=== PATIENT | female | born 1995 | race Caucasian/White ===

== ENCOUNTER 2018-05-06 03:42 | Outpatient (CLI) | payer BC ==
[2018-05-06 15:08] LABS: BHCG - Serum Negative (NEGATIVE); Pregs Control Background? CLEAR/WHITE (CLR/WHITE); Pregs Control Bar Appear? YES (CONTROL BAR)
== END 2018-05-06 03:43 | disposition home or self-care (01) ==
LOC: LABBT 03:42
PROVIDERS: ATTEND Student in an Organized Health Care Education/Training Program
DX: Z01.812 Encounter for preprocedural laboratory examination (principal)
CPT/HCPCS: 84703

== ENCOUNTER 2018-05-10 09:50 | Day surgery (SDC) | payer BC ==
[2018-05-06 13:09] VITALS: BMI 43.3
[2018-05-06 14:34] LABS: Hemoglobin 13.5 g/dL (12.0-16.0); Mean Corpuscular HGB CONC 33.3 g/dL (32.0-36.0); Mean Corpuscular Hemoglobin 27.8 pg (25.0-35.0); Mean Corpuscular Volume 83.5 fL (78.0-98.0); Mean Platelet Volume 9.1 fL (7.4-10.4); Platelet Count 303 thou/uL (130-400); RBC Distribution Width 13.4 % (11.5-14.5); Red Blood Cell (RBC) Count 4.85 mill/uL (4.00-5.20); White Blood Cell (WBC) Count 8.8 thou/uL (4.8-10.8)
[2018-05-10] MEDS ORDERED: Fentanyl 100 MCG/2 ML VIAL ONE ×2 (10:33→12:27)
[2018-05-10] MEDS ORDERED: Midazolam HCl 2 mg/2 ml Vial ONE (10:52)
[2018-05-10] MEDS ORDERED: Famotidine/PF 20 mg/2ml Vial ONE (10:52)
[2018-05-10] MEDS ORDERED: Ketorolac Tromethamine 30 MG/ML VIAL ONE (10:53)
[2018-05-10] MEDS ORDERED: Silver Nitrate Application 1 EACH ONE (11:50)
[2018-05-10] MEDS ORDERED: Lidocaine 1% PF 5 ML VIAL ONE (13:53)
[2018-05-10] MEDS ORDERED: Dexamethasone 20 MG/5 ML VIAL ONE (13:53)
[2018-05-10] MEDS ORDERED: diphenhydrAMINE 50 MG/ML VIAL ONE (13:53)
[2018-05-10] MEDS ORDERED: Glycopyrrolate 0.2 MG/ML 5 ML SYRINGE ONE (13:53)
[2018-05-10] MEDS ORDERED: Rocuronium Bromide 10 MG/ML (10ML VIAL) ONE (13:53)
[2018-05-10] MEDS ORDERED: Ondansetron PF 4 MG/2 ML Vial ONE (13:53)
[2018-05-10] MEDS ORDERED: PROPOFOL 200 MG/20 ML VIAL ONE (13:53)
--- NOTE | 2018-05-10 15:43 | OP ---
DATE OF PROCEDURE: 05/10/2018 PREOPERATIVE DIAGNOSES: 1. Pelvic pain. 2. Irregular bleeding. 3. Displaced intrauterine device. POSTOPERATIVE DIAGNOSIS: Embedded intrauterine device in the endocervix. PROCEDURE: Hysteroscopy with intrauterine device removal. ANESTHESIA: General endotracheal. [employer] SURGEON: Carmela Murray PA-C. PATHOLOGY: None. COMPLICATIONS: None. DRAINS: None. ESTIMATED BLOOD LOSS: 5 mL. IVF: 1 L of crystalloid. URINE OUTPUT: 200 mL of clear urine. FINDINGS: Cervix is normal-appearing. IUD strings are present. On tugging on the IUD strings, the IUD did not deliver easily. On hysteroscopic exam, the IUD was present in the cervix. One of the arms was embedded in the endocervical canal. The uterus was normal appearing. There were no uterine anomalies and the bilateral tubal ostia were visualized. Normal saline was used as distention media and the deficit was 70 mL. OPERATIVE TECHNIQUE: The patient was taken to the operating room, where general anesthesia was obtained without difficulty. The patient was prepped and draped in a sterile fashion in the dorsal lithotomy position. A red rubber catheter was used to drain the bladder and a speculum was placed in the vagina. The anterior lip of the cervix was grasped with single-tooth tenaculum. The cervix was dilated with Andrew dilators. Once the IUD did not deliver with gentle traction on the strings, the 5-mm hysteroscope was assembled and using normal saline as distention media, this was inserted into the cervix, and immediately the IUD was visible with one of the arms perforating the canal. The scope was then passed through the cervix then into the uterus, where the uterus was noted to be normal appearing with the secretory type endometrium. No masses inside. At that time, the hysteroscopic grasper was used to grasp one of the arms of the IUD, and under direct visualization, traction was placed on the arm and the IUD easily delivered through the cervix and this was discarded. Additional look in the cervix noted no defects in the cervix, no active bleeding. The uterus was also again noted to be within normal limits. All instruments were then removed from the patient. The tenaculum site was continuously oozing and this was hemostatic with silver nitrate. All instruments were removed out of the vagina. The patient tolerated procedure well. Sponge, lap, and needle counts were correct x2. The patient was taken to Recovery in stable condition. The patient received Ancef 2 g prior to the procedure. Job ID: [id number]
== END 2018-05-10 14:10 | disposition home or self-care (01) ==
LOC: SDC 09:50
PROVIDERS: ATTEND Student in an Organized Health Care Education/Training Program
PROC: 0UC98ZZ Extirpation of Matter from Uterus, Via Natural or Artificial Opening Endoscopic (ICD-10-PCS; principal; 2018-05-10)
DX: T83.32XA Displacement of intrauterine contraceptive device, initial encounter (principal); F41.9 Anxiety disorder, unspecified; F32.9 Major depressive disorder, single episode, unspecified; F17.290 Nicotine dependence, other tobacco product, uncomplicated; R73.03 Prediabetes; Z79.84 Long term (current) use of oral hypoglycemic drugs; Z79.899 Other long term (current) drug therapy
CPT/HCPCS: 85027; 86850; 86900; 86901; J0131; J1100; J1200; J1885; J2001; J2250; J2405; J2704; J3010; S0028

== ENCOUNTER 2018-07-19 12:44 | Emergency (ER) | payer BC ==
[2018-07-19 13:31] LABS: #Basophils 0.1 thou/uL (0.0-0.2); #Eosinphils 0.3 thou/uL (0.0-0.7); #Lymphocytes 3.2 thou/uL (1.20-3.40); #Monocytes 0.5 thou/uL (0.11-0.59); #Neutrophils 6.9 thou/uL (1.40-6.50); %Basophils 0.7 % (0.0-1.0); %Eosinophils 2.7 % (0.0-10.0); %Lymphocytes 29.2 % (28.0-48.0); %Monocytes 4.6 % (0.0-4.0); %Neutrophils 62.8 % (31.0-61.0); Hemoglobin 13.9 g/dL (12.0-16.0); Mean Corpuscular HGB CONC 34.6 g/dL (32.0-36.0); Mean Corpuscular Hemoglobin 29.2 pg (25.0-35.0); Mean Corpuscular Volume 84.5 fL (78.0-98.0); Mean Platelet Volume 8.7 fL (7.4-10.4); Platelet Count 308 thou/uL (130-400); RBC Distribution Width 13.2 % (11.5-14.5); Red Blood Cell (RBC) Count 4.74 mill/uL (4.00-5.20)
[2018-07-19 13:50] LABS: Bilirubin Negative (Negative); Blood, Urine Negative (Negative); Clarity CLEAR (Clear); Glucose, Urine (Dipstick) Negative (Negative); Leukocyte Negative (Negative); Nitrite Negative (Negative); Protein, Urine (Dipstick) Negative (Neg-Trace); Specific Gravity, Urine 1.021 (1.002-1.036); Urobilinogen 0.2 mg/dL (0.2-1.0)
[2018-07-19 14:01] LABS: ALT (SGPT) 20 U/L (8-55); AST (SGOT) 16 U/L (5-34); Albumin 4.3 g/dL (3.5-5.0); Alkaline Phosphatase 70 U/L (40-150); Anion Gap 14 mmol/L (10-20); BUN (Urea Nitrogen) 13 mg/dL (7.0-18.7); Bilirubin, Total 0.2 mg/dL (0.2-1.2); Calc. Creatinine Clearance 0 mL/min (70-130); Calcium 9.7 mg/dL (7.8-10.44); Carbon Dioxide 22 mmol/L (22-29); Chloride 105 mmol/L (98-107); Estimated GFR-MDRD Greater than 90; Globulin 3.9 g/dL (2.4-3.5); Glucose 77 mg/dL (70-105); Lipase 79 U/L (8-78); Potassium 4.2 mmol/L (3.5-5.1); Protein, Total 8.2 g/dL (6.0-8.3); Sodium 137 mmol/L (136-145)
[2018-07-19] MEDS ORDERED: Morphine 4 MG/ML VIAL ONE (14:26)
[2018-07-19] MEDS ORDERED: Ondansetron PF 4 MG/2 ML Vial ONE (14:26)
[2018-07-19 14:52] LABS: Pregnancy Test - Urine (BHCG) Negative (Negative); Pregu Control Background? CLEAR/WHITE (CLR/WHITE); Pregu Control Bar Appear? YES (CONTROL BAR); Specific Gravity 1.021 (1.002-1.036)
--- NOTE | 2018-07-19 15:33 | CT ---
ABDOMEN CT WITH CONTRAST PELVIC CT WITH CONTRAST: HISTORY: Stabbing pains in the vaginal canal and abdominal pain, onset 1 week ago. COMPARISON: None. FINDINGS: ABDOMEN CT: Lung bases are clear. Normal heart size. No significant pericardial effusion. Descending thoracic aorta and abdominal aorta have a normal caliber. No periaortic fat stranding. Portal vein is patent. Hypoattenuation of the liver due to hepatic steatosis. Spleen, pancreas, and adrenal glands have kimmie ropriate attenuation. There is calcification in the medial limb of the right adrenal gland likely du e to remote insult. No gastrohepatic, retrocrural, or periportal lymphadenopathy. Decreased distal fat limits evaluation for inflammatory change. No mesenteric mass, free air, or emmett e fluid. Symmetric enhancement of the kidneys. Bilaterally, no obstructive uropathy. Limited evaluation of the alimentary canal by lack of oral contrast. Gastric mucosa is grossly unrem arkable. Multiple normal-caliber small bowel loops. Ileocecal junction is normal. The distal aspec t of the appendix is prominent measuring approximately 1 cm. No significant associated periappendice al inflammatory change. However, there are a few upper normal as well as enlarged lymph nodes in the right lower quadrant mesentery. The largest lymph node measures 1.8 x 1.4 cm. The remainder of the colon is unremarkable. Scattered diverticulosis. No diverticulitis. CT PELVIS: Uterus and adnexal structures are unremarkable. Unremarkable urinary bladder. No pelvic mass, lymph adenopathy, free air, or free fluid. No lytic or blastic lesions within the osseous structures. IMPRESSION: 1. Upper normal caliber of the appendix. No evidence of associated inflammatory change. Findings a re nonspecific. Correlate clinically for appendicitis. 2. Scattered diverticulosis. No diverticulitis. 3. Hepatic steatosis. 4. Mildly enlarged right lower quadrant mesenteric lymph nodes which may be reactive or possibly due to focal mesenteric lymphadenitis. Correlate clinically. POS: OFF
== END 2018-07-19 15:46 | disposition home or self-care (01) ==
LOC: ERS 12:44
DX: I88.0 Nonspecific mesenteric lymphadenitis (principal); E11.9 Type 2 diabetes mellitus without complications; F41.9 Anxiety disorder, unspecified; F32.9 Major depressive disorder, single episode, unspecified; Z79.899 Other long term (current) drug therapy; Z79.84 Long term (current) use of oral hypoglycemic drugs
CPT/HCPCS: 36415; 74177; 80053; 81003; 81025; 83690; 85025; 87480; 87491; 87510; 87591; 87660; 96361; 96374; 96375; J2270; J2405

== ENCOUNTER 2018-08-08 08:37 | Outpatient (CLI) | payer BC ==
[2018-08-08] MEDS ORDERED: Iopamidol 370 76% 100 ML VIAL ONE (09:00)
[2018-08-08 11:00] LABS: BHCG - Serum Negative (NEGATIVE); Pregs Control Background? CLEAR/WHITE (CLR/WHITE); Pregs Control Bar Appear? YES (CONTROL BAR)
--- NOTE | 2018-08-08 12:01 | CT ---
EXAM: CT ABDOMEN AND PELVIS HISTORY: Lower abdominal pain. Pelvic pain. Back pain. COMPARISON: 07/19/2018 Procedure: Multiple contiguous axial images were obtained and a CT of the abdomen and pelvis with IV contrast. C oronal reformats were performed. FINDINGS: Lower Chest: Minimal scar/atelectasis in the left lung base Vessels: Normal caliber aorta. Heart: Unremarkable Abdomen: Portal vein:Patent Gallbladder: No calcified gallstones. Normal caliber wall. Liver: Diffuse hypoattenuation due to hepatic steatosis Pancreas: within normal limits. Spleen: within normal limits. Adrenals: Stable calcification of the right adrenal limb. Kidneys: Symmetric enhancement. No obstructive uropathy. Peritoneum: No ascites or free air, no fluid collection. Bowel: No evidence of bowel obstruction. Ileocecal junction is normal. Contrast opacifies the majorit y of the appendix, with the exception of the tip of the appendix. The tip of the appendix is slightly prominent, similar to the previous examination. No evidence of inflammatory change. Tip of t he appendix continues to measure possibly 1.2 cm. Unremarkable colon. Mesentery and Retroperitoneum: No enlarged mesenteric or retroperitoneal lymph nodes. There continue to be scattered mildly enlarged mesenteric lymph nodes. Correlate for mesenteric lymphadenitis. Abdominal Wall: Small umbilical hernia containing fat Pelvis: Reproductive Organs: No pelvic masses. Pelvis: within normal limits. Bladder: within normal limits. Bones: within normal limits. IMPRESSION: 1. Contrast opacifying a overall normal appearing appendix. Though the distal tip of the appendix is prominent, there is no inflammatory change. 2. Hepatic steatosis 3. Scattered mesenteric lymph nodes. Correlate for mesenteric lymphadenitis.
== END 2018-08-08 08:38 | disposition home or self-care (01) ==
LOC: SCSCT 08:37
PROVIDERS: ATTEND Surgery
DX: R10.30 Lower abdominal pain, unspecified (principal); R10.2 Pelvic and perineal pain; K38.8 Other specified diseases of appendix; K76.0 Fatty (change of) liver, not elsewhere classified
CPT/HCPCS: 74177; 84703; Q9967

== ENCOUNTER 2018-08-19 09:45 | Outpatient (CLI) | payer BC ==
--- NOTE | 2018-08-19 10:43 | ULT ---
US Gallbladder RUQ HISTORY: Right upper quadrant pain for several months COMPARISON: CT examination performed 08/08/2018. FINDINGS: Real-time imaging of the right upper quadrant shows a normal-appearing gallbladder. The com mon bile duct is 4 mm. The liver shows diffuse fatty change. It measures 21 cm in length. The pancreas is largely obscured. The right kidney is normal in size and not obstructed. IMPRESSION: Fatty changes of a mildly enlarged liver.
== END 2018-08-19 09:46 | disposition home or self-care (01) ==
LOC: ULT 09:45
PROVIDERS: ATTEND Surgery
DX: R10.11 Right upper quadrant pain (principal); K76.0 Fatty (change of) liver, not elsewhere classified
CPT/HCPCS: 76705

== ENCOUNTER 2018-08-23 16:28 | Emergency (ER) | payer BC ==
[2018-08-23] MEDS ORDERED: Promethazine HCl 25 MG/ML VIAL ONE (18:36)
[2018-08-23] MEDS ORDERED: Morphine 4 MG/ML VIAL ONE (18:36)
[2018-08-23 18:41] LABS: #Basophils 0.1 thou/uL (0.0-0.2); #Eosinphils 0.5 thou/uL (0.0-0.7); #Lymphocytes 2.7 thou/uL (1.20-3.40); #Monocytes 0.5 thou/uL (0.11-0.59); #Neutrophils 5.9 thou/uL (1.40-6.50); %Basophils 0.6 % (0.0-1.0); %Eosinophils 5.3 % (0.0-10.0); %Lymphocytes 27.9 % (28.0-48.0); %Monocytes 4.8 % (0.0-4.0); %Neutrophils 61.3 % (31.0-61.0); Hemoglobin 13.6 g/dL (12.0-16.0); Mean Corpuscular HGB CONC 32.5 g/dL (32.0-36.0); Mean Corpuscular Hemoglobin 27.9 pg (25.0-35.0); Mean Platelet Volume 8.9 fL (7.4-10.4); Platelet Count 279 thou/uL (130-400); Red Blood Cell (RBC) Count 4.86 mill/uL (4.00-5.20); White Blood Cell (WBC) Count 9.7 thou/uL (4.8-10.8)
[2018-08-23 19:00] LABS: ALT (SGPT) 19 U/L (8-55); AST (SGOT) 14 U/L (5-34); Albumin 4.2 g/dL (3.5-5.0); Alkaline Phosphatase 66 U/L (40-150); Anion Gap 13 mmol/L (10-20); BUN (Urea Nitrogen) 10 mg/dL (7.0-18.7); Bilirubin, Total 0.3 mg/dL (0.2-1.2); Calc. Creatinine Clearance 0 mL/min (70-130); Calcium 9.6 mg/dL (7.8-10.44); Carbon Dioxide 22 mmol/L (22-29); Chloride 107 mmol/L (98-107); Estimated GFR-MDRD Greater than 90; Globulin 3.5 g/dL (2.4-3.5); Glucose 79 mg/dL (70-105); Lipase 68 U/L (8-78); Potassium 3.8 mmol/L (3.5-5.1); Protein, Total 7.7 g/dL (6.0-8.3); Sodium 138 mmol/L (136-145)
[2018-08-23 19:39] LABS: Bacteria/HPF None Seen HPF (None Seen); Bilirubin Negative (Negative); Blood, Urine 3+ (Negative); Clarity Clear (Clear); Glucose, Urine (Dipstick) Normal (Negative); Leukocyte Negative Leu/uL (Negative); Mucous/LPF 1+ LPF (<2+); Nitrite Negative (Negative); Pregnancy Test - Urine (BHCG) Negative (Negative); Pregu Control Background? CLEAR/WHITE (CLR/WHITE); Pregu Control Bar Appear? YES (CONTROL BAR); Protein, Urine (Dipstick) 30 mg/dL (Neg-Trace); Squamous Epithelial 0-3 HPF (0-3)
[2018-08-23] MEDS ORDERED: HYDROcodone/Acetaminophen 10/325 mg Tablet ONE (19:44)
== END 2018-08-23 20:14 | disposition home or self-care (01) ==
LOC: ERS 16:28
DX: R10.84 Generalized abdominal pain (principal); E11.9 Type 2 diabetes mellitus without complications; F41.9 Anxiety disorder, unspecified; F32.9 Major depressive disorder, single episode, unspecified; F17.290 Nicotine dependence, other tobacco product, uncomplicated; Z79.84 Long term (current) use of oral hypoglycemic drugs; Z79.899 Other long term (current) drug therapy
CPT/HCPCS: 80053; 81003; 81015; 81025; 83690; 85025; 96365; 96375; J2270; J2550

== ENCOUNTER 2018-08-24 07:49 | Outpatient (CLI) | payer BC ==
--- NOTE | 2018-08-24 11:35 | NM ---
HEPATOBILIARY SCAN: HISTORY: Right upper quadrant pain. COMPARISON: No gallstones on ultrasound of 08/19/2018. RADIOPHARMACEUTICAL: Technetium 99m mebrofenin 5.1 millicuries injected intravenously. FINDINGS: There is good tracer extraction by the liver with prompt excretion into the biliary tract and small b owel loops and normal filling of the gallbladder. The calculated gallbladder ejection fraction following an oral fatty meal measures 90%. IMPRESSION: Normal examination. POS: MILIND
== END 2018-08-24 07:50 | disposition home or self-care (01) ==
LOC: NM 07:49
PROVIDERS: ATTEND Surgery
DX: R10.11 Right upper quadrant pain (principal)
CPT/HCPCS: 78227; A9537

== ENCOUNTER 2018-08-26 10:55 | Day surgery (SDC) | payer BC ==
[2018-08-25 15:26] VITALS: BMI 41.0
[2018-08-26] MEDS ORDERED: Fentanyl 100 MCG/2 ML VIAL ONE ×3 (12:16→14:55)
[2018-08-26] MEDS ORDERED: Bupivacaine HCl 0.5%/Epinephrine 1:200,000/PF 30 ml Vial ONE (12:16)
[2018-08-26] MEDS ORDERED: Midazolam HCl 2 mg/2 ml Vial ONE (12:58)
[2018-08-26] MEDS ORDERED: cefOXitin 2 GM VIAL ONE (14:13)
[2018-08-26] MEDS ORDERED: Promethazine HCl 25 MG/ML VIAL ONE (14:34)
[2018-08-26] MEDS ORDERED: Ondansetron PF 4 MG/2 ML Vial ONE (15:54)
[2018-08-26] MEDS ORDERED: Lidocaine 1% PF 5 ML VIAL ONE (15:54)
[2018-08-26] MEDS ORDERED: Ketorolac Tromethamine 30 MG/ML VIAL ONE (15:54)
[2018-08-26] MEDS ORDERED: Dexamethasone 20 MG/5 ML VIAL ONE (15:54)
[2018-08-26] MEDS ORDERED: Rocuronium Bromide 10 MG/ML (10ML VIAL) ONE (15:54)
[2018-08-26] MEDS ORDERED: Glycopyrrolate 0.2 MG/ML 5 ML SYRINGE ONE (15:54)
[2018-08-26] MEDS ORDERED: Labetalol HCl 100 MG/20 ML VIAL ONE (15:54)
[2018-08-26] MEDS ORDERED: PROPOFOL 200 MG/20 ML VIAL ONE (15:54)
[2018-08-26] MEDS ORDERED: HYDROcodone/Acetaminophen 5/325 mg Tablet ONE ×2 (16:06→16:34)
--- NOTE | 2018-08-27 10:01 | PDOC.OP ---
Operative Note - Operative Note Operative Note: PROCEDURE: Laparoscopic appendectomy, repair of umbilical hernia and diagnostic laparoscopy. SURGEON: Nico Dillon M.D. DATE OF PROCEDURE: 08/26/2018 PREOPERATIVE DIAGNOSIS: Chronic pelvic and right-sided abdominal pain and abnormal appearing appendix on CT, umbilical hernia POSTOPERATIVE DIAGNOSIS: Chronic pelvic and right-sided abdominal pain and abnormal appearing appendix on CT, umbilical hernia HISTORY: Patient is a 22-year-old woman with right-sided abdominal and pelvic pain since removal of a perforated or eroded IUD this spring. Gallbladder ultrasound and HIDA scan were normal but CT showed some prominent mesenteric lymph nodes and an abnormally enlarged but noninflamed appearing appendix which persisted on repeat imaging. Recommendation was made to proceed with laparoscopic appendectomy for diagnostic purposes, and diagnostic laparoscopy to evaluate for possible gynecologic etiology for her pain. Dr. Gutiérrez was present for the diagnostic laparoscopy portion of the case. She also has a incidentally noted a symptomatic umbilical hernia which will be repaired with suture at the time of the operation since it is at the location of one of the port sites anyway. DESCRIPTION OF PROCEDURE: After informed consent was obtained and appropriate antibiotics continued, the patient was taken to the operating room and placed in the supine position and general endotracheal anesthesia was administered. The bladder was decompressed with a Stevenson catheter and the abdomen was prepped and draped in the standard sterile fashion. Local anesthesia was infused to the skin and subcutaneous tissues superior to the umbilicus. A transverse skin incision was made and a Veress needle placed into the abdominal cavity and carbon dioxide gas insufflated but the pressure rapidly rochelle to 15 and it was felt that gas was being insufflated into the preperitoneal space. The umbilical incision was extended and dissection carried down to the fascia. The small umbilical hernia was identified and cleared circumferentially. The peritoneum was entered through the hernia defect under direct vision using a ClearView port. There was no evidence of Veress needle or trocar injury. Two additional ports were placed in the suprapubic and left lateral abdomen under direct laparoscopic vision after local anesthesia was infused at these sites. Only 5 mm ports were used. There were no significant adhesions in the small bowel and sigmoid appeared normal. The appendix was identified and appeared thickened but not acutely inflamed. There were some adhesions of the distal appendix to the lateral sidewall suggesting possibility of previous inflammation. The pelvis was then carefully examined. There was no evidence of endometriosis or adhesions. The ovaries and fallopian tubes appeared normal without dominant cyst or hemorrhage. There were 2 tiny left fallopian cysts which were normal in appearance. The cul-de-sac was clear without evidence of adhesions or scarring. Attention was then turned to appendectomy. The appendix was grasped by the mesoappendix and elevated. The mesoappendix was then sequentially ligated at its base, including the entire mesoappendix with the appendiceal specimen, and divided down to the base of the appendix, which was somewhat large but otherwise normal in appearance and was clearly seen to be at the confluence of the tenia. Two Endoloops were placed around the base of the appendix and the appendix was divided between these Endoloops, placed into an EndoCatch bag and drawn out through the umbilical incision. Due to the enlarged size of the appendix, the fascial defect at the umbilicus had to be extended slightly to allow it to be removed. The umbilical trocar was then replaced and the operative site was easily irrigated to clear. The suprapubic and left lateral trocar were then removed and hemostasis verified. Carbon dioxide gas was desufflated through the umbilical trocar which was then removed. The skin incisions were irrigated and additional local anesthesia infused at each site. The fascial defect at the umbilicus was closed under direct vision with interrupted 0 Vicryl [id number] sutures with an excellent technical result. The skin was closed with 4-0 subcuticular Monocryl sutures and Dermabond dressings were placed. Once the Dermabond was dry a pressure dressing was placed at the umbilicus. The patient was extubated and taken to the recovery room in good condition. Estimated blood loss was minimal. There were no complications. SPECIMEN: Appendix.
== END 2018-08-26 16:55 | disposition home or self-care (01) ==
LOC: SDC 10:55
PROVIDERS: ATTEND Surgery
PROC: 0DTJ4ZZ Resection of Appendix, Percutaneous Endoscopic Approach (ICD-10-PCS; principal; 2018-08-26)
DX: K38.0 Hyperplasia of appendix (principal); K38.8 Other specified diseases of appendix; K42.9 Umbilical hernia without obstruction or gangrene; N83.8 Other noninflammatory disorders of ovary, fallopian tube and broad ligament; D64.9 Anemia, unspecified; F41.9 Anxiety disorder, unspecified; E66.9 Obesity, unspecified; Z79.84 Long term (current) use of oral hypoglycemic drugs; Z79.899 Other long term (current) drug therapy
CPT/HCPCS: 36415; 84702; 88304; J0670; J0690; J0694; J2250; J2550; J3010

== ENCOUNTER 2018-10-20 11:24 | Emergency (ER) | payer BC ==
[2018-10-20] MEDS ORDERED: Lorazepam 1 MG TAB ONE (12:38)
== END 2018-10-20 13:25 | disposition home or self-care (01) ==
LOC: ERS 11:24
DX: F41.0 Panic disorder [episodic paroxysmal anxiety] (principal); F17.290 Nicotine dependence, other tobacco product, uncomplicated; E11.9 Type 2 diabetes mellitus without complications; F32.9 Major depressive disorder, single episode, unspecified; Z79.899 Other long term (current) drug therapy; Z79.84 Long term (current) use of oral hypoglycemic drugs
CPT/HCPCS: 93005

== ENCOUNTER 2018-12-08 14:03 | Outpatient (CLI) | payer BC | END 2018-12-08 14:04 | disposition home or self-care (01) | LOC: CTENTCT 14:03 | PROVIDERS: ATTEND Otolaryngology Plastic Surgery within the Head & Neck | DX: J01.81 Other acute recurrent sinusitis (principal) | CPT/HCPCS: 70486 ==

== ENCOUNTER 2019-01-11 08:00 | Day surgery (SDC) | payer BC ==
[2019-01-10 12:22] VITALS: BMI 42.5
[2019-01-11] MEDS ORDERED: Fentanyl 250 MCG/5 ML VIAL ONE (08:56)
[2019-01-11] MEDS ORDERED: Lidocaine 1% w/Epinephrine 1:100K 20 ML VIAL ONE (09:47)
[2019-01-11] MEDS ORDERED: Ciprofloxacin 0.2% Otic 1 DROP CON ONE (09:47)
[2019-01-11] MEDS ORDERED: Rocuronium Bromide 10 MG/ML (10ML VIAL) ONE (09:54)
[2019-01-11] MEDS ORDERED: Ondansetron PF 4 MG/2 ML Vial ONE (09:54)
[2019-01-11] MEDS ORDERED: Lidocaine 1% PF 5 ML VIAL ONE (09:54)
[2019-01-11] MEDS ORDERED: PROPOFOL 200 MG/20 ML VIAL ONE (09:54)
[2019-01-11] MEDS ORDERED: Glycopyrrolate 0.2 MG/ML 5 ML SYRINGE ONE (09:54)
[2019-01-11] MEDS ORDERED: Dexamethasone 20 MG/5 ML VIAL ONE (09:54)
[2019-01-11] MEDS ORDERED: Midazolam HCl 2 mg/2 ml Vial ONE ×2 (10:22→11:26)
[2019-01-11] MEDS ORDERED: Fentanyl 100 MCG/2 ML VIAL ONE ×2 (11:26→11:40)
[2019-01-11] MEDS ORDERED: Meperidine HCl/PF 25 MG/ML VIAL ONE (11:34)
[2019-01-11 15:07] LABS: BHCG - Serum Negative (NEGATIVE); Pregs Control Background? CLEAR/WHITE (CLR/WHITE); Pregs Control Bar Appear? YES (CONTROL BAR)
--- NOTE | 2019-01-13 09:23 | OP ---
DATE OF PROCEDURE: 01/11/2019 PREOPERATIVE DIAGNOSES: 1. Chronic rhinosinusitis. 2. Bilateral inferior turbinate hypertrophy. 3. Nasal obstruction. POSTOPERATIVE DIAGNOSES: 1. Chronic rhinosinusitis. 2. Bilateral inferior turbinate hypertrophy. 3. Nasal obstruction. PROCEDURES: 1. Bilateral endoscopic sinus surgery, total ethmoidectomies. 2. Bilateral endoscopic sinus surgery, maxillary antrostomies. 3. Bilateral endoscopic sinus surgery, frontal sinusotomies. 4. Bilateral inferior turbinate submucosal resection. ESTIMATED BLOOD LOSS: 20 mL. COMPLICATIONS: None. ANESTHESIA: GETA. PROCEDURE IN DETAIL: Following this, 1% lidocaine with 1:100,000 epinephrine were injected into the middle turbinates and lateral nasal wall bilaterally. Following this, the 0-degree endoscope was used to visualize the middle turbinate and the middle turbinate was medially fractured using a [place] elevator. Following this, the uncinate process was identified and was examined. The uncinate process was noted to be inflamed and laterally displaced bilaterally. Following this, a ball-ended probe was used to anteriorly fracture the uncinate process bilaterally. Following this, the 0-degree microdebrider and the up-biting Blakesley forceps were used to remove the uncinate process bilaterally. Following this, the natural maxillary sinus ostia was identified with the 0-degree endoscope and the ball-ended probe. The natural maxillary ostia was then widened using a 40-degree microdebrider and the straight Blakesley forceps bilaterally. Following this, the ethmoidal bulla was identified bilaterally. A 0-degree microdebrider was used to puncture the ethmoidal bulla on its medial and inferior aspect bilaterally. Following this, the 0-degree microdebrider and the up-biting Blakesley forceps were used to remove the ethmoidal bulla. Following this, the grand lamella was identified posterior to this area and was punctured using the 0-degree microdebrider bilaterally. Following this, the ethmoidal cells were opened from the posterior to the anterior using the 0-degree microdebrider, the 40-degree microdebrider and the up-biting Blakesley forceps bilaterally. Following this, the 45-degree endoscope and the 40-degree microdebrider blade were used to further remove the anterior ethmoidal cells to the level of the frontal sinus recess bilaterally. Following this, the 45-degree endoscope along with a 40-degree microdebrider blade were used to further open the anterior ethmoidal cells and expose the frontal sinus ostia bilaterally. Following this, the frontal sinus ostia was widened using a 40-degree microdebrider blade and up-biting Blakesley forceps bilaterally. Following this, the inferior turbinates were then punctured on the anterior and inferior aspect and submucosal resection was performed with the submucosal microdebrider bilaterally. Following this, nasal cavity was irrigated. Nasopore packing was placed within the middle meatus. The patient tolerated the procedure well. Job ID: [id number]
== END 2019-01-11 13:00 | disposition home or self-care (01) ==
LOC: SDC 08:00
PROVIDERS: ATTEND Otolaryngology Plastic Surgery within the Head & Neck
PROC: 09BS8ZZ Excision of Right Frontal Sinus, Via Natural or Artificial Opening Endoscopic (ICD-10-PCS; principal; 2019-01-11)
PROC: 099R8ZZ Drainage of Left Maxillary Sinus, Via Natural or Artificial Opening Endoscopic (ICD-10-PCS; principal; 2019-01-11)
PROC: 09TU8ZZ Resection of Right Ethmoid Sinus, Via Natural or Artificial Opening Endoscopic (ICD-10-PCS; principal; 2019-01-11)
PROC: 09TL8ZZ Resection of Nasal Turbinate, Via Natural or Artificial Opening Endoscopic (ICD-10-PCS; principal; 2019-01-11)
PROC: 099Q8ZZ Drainage of Right Maxillary Sinus, Via Natural or Artificial Opening Endoscopic (ICD-10-PCS; principal; 2019-01-11)
PROC: 09BT8ZZ Excision of Left Frontal Sinus, Via Natural or Artificial Opening Endoscopic (ICD-10-PCS; principal; 2019-01-11)
PROC: 09TV8ZZ Resection of Left Ethmoid Sinus, Via Natural or Artificial Opening Endoscopic (ICD-10-PCS; principal; 2019-01-11)
DX: J32.8 Other chronic sinusitis (principal); J34.3 Hypertrophy of nasal turbinates; J34.89 Other specified disorders of nose and nasal sinuses; Z79.899 Other long term (current) drug therapy; Z88.8 Allergy status to other drugs, medicaments and biological substances
CPT/HCPCS: 84703; 85014; J0131; J1100; J2001; J2175; J2250; J2405; J2704; J3010

== ENCOUNTER 2019-01-18 08:54 | Outpatient (CLI) | payer BC | END 2019-01-18 08:55 | disposition home or self-care (01) | LOC: DTY/OP 08:54 | PROVIDERS: ATTEND Specialist | DX: Z01.818 Encounter for other preprocedural examination (principal); E66.01 Morbid (severe) obesity due to excess calories | CPT/HCPCS: 36415; 80053; 80061; 82306; 82607; 82728; 82746; 83036; 83540; 84425; 84436; 84443; 84480; 85025; 86677; 97802 ==

== ENCOUNTER 2020-04-11 16:52 | Emergency (ER) | payer BC ==
[~2020-04-11 16:52] MED LIST: Iopamidol-370 76% 500 ML 1 ML ONE
[2020-04-11] MEDS ORDERED: Ondansetron PF 4 MG/2 ML Vial ONE (17:38)
[2020-04-11] MEDS ORDERED: Morphine 4 MG/ML VIAL ONE (17:38)
[2020-04-11 18:07] LABS: #Eosinphils 0.1 thou/uL (0.0-0.7); #Lymphocytes 2.8 thou/uL (1.20-3.40); #Monocytes 0.5 thou/uL (0.11-0.59); #Neutrophils 6.6 thou/uL (1.40-6.50); %Basophils 0.5 % (0.0-1.0); %Eosinophils 0.8 % (0.0-10.0); %Lymphocytes 27.9 % (21.0-51.0); %Monocytes 4.6 % (0.0-10.0); %Neutrophils 66.3 % (42.0-75.0); Hemoglobin 14.2 g/dL (12.0-16.0); Mean Corpuscular HGB CONC 33.8 g/dL (32.0-36.0); Mean Corpuscular Hemoglobin 28.9 pg (27.0-31.0); Mean Corpuscular Volume 85.6 fL (78.0-98.0); Mean Platelet Volume 9.1 fL (7.4-10.4); Platelet Count 311 thou/uL (130-400); RBC Distribution Width 12.8 % (11.5-14.5); Red Blood Cell (RBC) Count 4.89 mill/uL (4.20-5.40)
[2020-04-11 18:22] LABS: ALT (SGPT) 29 U/L (8-55); AST (SGOT) 21 U/L (5-34); Albumin 4.6 g/dL (3.5-5.0); Alkaline Phosphatase 79 U/L (40-110); Anion Gap 17 mmol/L (10-20); BHCG - Serum Negative (NEGATIVE); BUN (Urea Nitrogen) 10 mg/dL (7.0-18.7); Bilirubin, Total 0.3 mg/dL (0.2-1.2); Calc. Creatinine Clearance 0 mL/min (70-130); Calcium 9.6 mg/dL (7.8-10.44); Carbon Dioxide 21 mmol/L (22-29); Chloride 106 mmol/L (98-107); Globulin 4.1 g/dL (2.4-3.5); Glucose 98 mg/dL (70-105); Lipase 41 U/L (8-78); Potassium 3.9 mmol/L (3.5-5.1); Pregs Control Background? CLEAR/WHITE (CLR/WHITE); Pregs Control Bar Appear? YES (CONTROL BAR); Protein, Total 8.7 g/dL (6.0-8.3); Sodium 140 mmol/L (136-145)
[2020-04-11 18:31] LABS: Bilirubin Negative (Negative); Blood, Urine 3+ (Negative); Clarity Clear (Clear); Glucose, Urine (Dipstick) Normal (Negative); Ketone, Urine Negative (Negative); Leukocyte 25 Leu/uL (Negative); Nitrite Negative (Negative); Protein, Urine (Dipstick) 20 mg/dL (Neg-Trace); Specific Gravity, Urine 1.026 (1.002-1.036); Urobilinogen Normal mg/dL (Less than 2); pH, Urine 6.5 (5.0-9.0)
[2020-04-11 18:34] LABS: Bacteria/HPF 1+ HPF (None Seen)
--- NOTE | 2020-04-11 19:04 | CT ---
ABDOMEN CT WITH CONTRAST PELVIC CT WITH CONTRAST: 04/11/20 COMPARISON: 08/08/18 HISTORY: Left upper quadrant pain, dark colored stools. FINDINGS: ABDOMEN CT: Dependent atelectatic changes in the lung bases. Normal heart size. Normal caliber aorta. Redemonstration of fatty infiltration of the liver. There is fatty sparing in the right hepatic lobe. Additional fatty sparing in the left hepatic lobe is noted. There are no enhancing masses in the poonam er. The spleen, pancreas, and adrenal glands have appropriate attenuation and enhancement. No gastrohepatic, retrocrural or periportal lymphadenopathy. No mesenteric mass, free air or free air. There are mildly enlarged left hemiabdominal mesenteric lym ph nodes which are similar to the previous examination. Correlate for mesenteric lymphadenitis. Repre sentative lymph node measures 0.8 x 0.8 cm. Limited evaluation of the alimentary canal by the lack of oral contrast. No evidence of a bowel obst ruction. Ileocecal junction is normal. Normal caliber appendix. Scattered material in a nondist ended, nondilated colon. There is diverticulosis. No evidence of diverticulitis. Symmetric enhancement of the kidneys. Bilaterally, no obstructive uropathy. PELVIC CT: Uterus and adnexal structures are grossly unremarkable. There is a dominant follicle emanating from t he left ovary measuring 1.4 cm. No pelvic mass, lymphadenopathy, or free air. No significant free flu id. Bladder is decompressed. No lytic or blastic lesions within the osseous structures. IMPRESSION: 1. No acute abnormality in the abdomen or pelvis. 2. Redemonstration of scattered mesenteric lymph nodes. Correlate for mesenteric lymphadenitis. POS: PPP
== END 2020-04-11 19:30 | disposition home or self-care (01) ==
LOC: ERS 16:52
DX: R10.32 Left lower quadrant pain (principal)
CPT/HCPCS: 36415; 74177; 80053; 81003; 81015; 82274; 83690; 84703; 85025; 96374; 96375; J2270; J2405; Q9967